=== PATIENT | male | born 1990 | race American Indian/Alaskan Native ===

== ENCOUNTER 2018-06-23 19:03 | Emergency (ER) | payer SELFPAY ==
[2018-06-23 19:49] VITALS: BP 137/70
[2018-06-23] MEDS ORDERED: MOTRIN PO ONE ×2 (19:50→21:34)
--- NOTE | 2018-06-23 21:26 | XRay Report ---
FINAL REPORT PROCEDURE: Lumbar spine. TECHNIQUE: Three views. HISTORY: Lower back pain. COMPARISON: No prior studies are available for comparison. FINDINGS: The lumbar vertebrae have normal height and alignment. There are no fractures. There is no spondylolisthesis. The disc spaces are well maintained. The sacrum and sacroiliac joints appear normal. IMPRESSION: Normal study.
[2018-06-23] MEDS ORDERED: NORCO 5/325 PO ONE (21:34)
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
== END 2018-06-23 22:33 | disposition home or self-care (01) ==
LOC: ED 19:03
DX: S20.222A Contusion of left back wall of thorax, initial encounter (principal); F17.200 Nicotine dependence, unspecified, uncomplicated; Z91.018 Allergy to other foods; Y04.8XXA Assault by other bodily force, initial encounter; Y93.89 Activity, other specified; Y92.89 Other specified places as the place of occurrence of the external cause; Y99.8 Other external cause status
CPT/HCPCS: 72100; 99283